=== PATIENT | male | born 1970 | race African-American/Black ===

== ENCOUNTER 2020-05-08 05:46 | Inpatient (IN) ==
[2020-05-08] MEDS ORDERED: DIAZEPAM 5 MG TABLET PO ONE (06:15)
[2020-05-08] MEDS ORDERED: POTASSIUM CHLORIDE RIDER 10 MEQ in PREMIX 1 EACH IV PRN (06:15)
[2020-05-08] MEDS ORDERED: diphenhydrAMINE CAP 50 MG CAPSULE PO ONE (06:15)
[2020-05-08] MEDS ORDERED: ASPIRIN 325 MG TABLET PO ONE (06:15)
[2020-05-08] MEDS ORDERED: MAGNESIUM SULF RIDER 2 GM in PREMIX 1 EACH IV PRN (06:15)
[2020-05-08] MEDS ORDERED: HEPARIN/NACL 0.9% 2 UNITS/ML 1,000 ML IV ONE (06:51)
[2020-05-08] MEDS ORDERED: LIDOCAINE 1% 20 ML VIAL ONE (06:51)
[2020-05-08] MEDS ORDERED: diphenhydrAMINE CAP 50 MG CAPSULE ONE (07:04)
[2020-05-08] MEDS ORDERED: DIAZEPAM 5 MG TABLET ONE (07:04)
[2020-05-08] MEDS ORDERED: ASPIRIN 325 MG TABLET ONE (07:04)
[2020-05-08] MEDS: SODIUM CHLORIDE 0.9% 1,000 ML IV SCH ×2 (07:07→16:18)
[2020-05-08] MEDS ORDERED: HYDROmorphone 2 MG/1 ML VIAL ONE (07:22)
[2020-05-08] MEDS ORDERED: MIDAZOLAM 2 MG/2 ML VIAL ONE (07:22)
[2020-05-08] MEDS ORDERED: diphenhydrAMINE 50 MG/1 ML VIAL ONE (07:31)
[2020-05-08] MEDS ORDERED: LABETALOL 20 MG/4 ML SYRINGE IV ONE (07:44)
[2020-05-08] MEDS ORDERED: ZALEPLON 5 MG CAPSULE PO PRN (08:17)
[2020-05-08] MEDS ORDERED: ONDANSETRON 4 MG/2 ML VIAL IV PRN (08:17)
[2020-05-08] MEDS ORDERED: ALBUTEROL 2.5 MG/3 ML NEB RESP TX PRN (08:18)
[2020-05-08] MEDS: FUROSEMIDE 40 MG/4 ML VIAL IV SCH ×2 (09:28→16:09)
[2020-05-08] MEDS: carvediloL 12.5 MG TABLET PO SCH ×2 (09:28→20:34)
[2020-05-08] MEDS: amLODIPine 10 MG TABLET PO SCH (09:28)
[2020-05-08] MEDS ORDERED: diphenhydrAMINE CAP 25 MG CAPSULE PO PRN (12:29)
[2020-05-08] MEDS ORDERED: MAGNESIUM HYDROXIDE SUSP 30 ML UDCUP PO PRN (12:30)
[2020-05-09] MEDS: SODIUM CHLORIDE 0.9% 1,000 ML IV SCH (03:19)
[2020-05-09 05:35] LABS: Basophils % 0.5 % (0.0-0.8); Eosinophils # 0.2 10*3/uL (0.0-0.87); Eosinophils % 3.5 % (0.00-10.9); Hematocrit 42.1 VOL% (42.0-52.0); Hemoglobin 13.9 GM/DL (14.0-18.0); Immature Granulocytes % 0.3 %; Immature Granulocytes Absolute 0.02 #; Lymphocytes # 1.7 10*3/uL (1.4-4.0); Lymphocytes % 27.8 % (21.2-54.2); Mean Corpuscular Volume 89.6 FL (87-102); Mean Platelet Volume 10.6 FL (9.6-12.0); Monocytes % 9.1 % (1.7-12.7); Neutrophils % 58.8 % (38.7-73.9); Platelet Count 238 T/CUMM (130-400); Red Cell Distribution Width 14.5 % (9.3-17.3); White Blood Count 6.3 T/CUMM (4-12)
[2020-05-09 06:01] LABS: Calcium 8.7 MG/DL (8.5-10.1); Osmolality,Calculated 273.8 MOS/KG (273-304); Potassium 3.9 MMOL/L (3.5-5.1)
[2020-05-09] MEDS: carvediloL 12.5 MG TABLET PO SCH ×2 (08:51→21:02)
[2020-05-09] MEDS: amLODIPine 10 MG TABLET PO SCH (08:51)
[2020-05-09] MEDS: FUROSEMIDE 40 MG/4 ML VIAL IV SCH ×2 (08:51→15:57)
[2020-05-09] MEDS ORDERED: ENOXAPARIN 40 MG/0.4 ML SYRINGE SUBCUT SCH (10:30)
[2020-05-09] MEDS ORDERED: POTASSIUM CHLORIDE 20 MEQ TABLET PO ONE (10:41)
[2020-05-09] MEDS: ALPRAZolam 0.25 MG TABLET PO PRN (11:10)
[2020-05-09] MEDS: ASCORBIC ACID 500 MG TABLET PO SCH ×2 (11:10→21:02)
[2020-05-09] MEDS ORDERED: DEXTROSE 50% 25 GM/50 ML VIAL IV PRN (12:37)
[2020-05-09] MEDS ORDERED: GLUCAGON 1 MG VIAL IM PRN (12:37)
[2020-05-10 04:38] LABS: ABG HCO3 27.9 MMOL/L (20-26); ABG Oxygen Saturation 94.9 % (95-100); ABG PCO2 42.5 MM HG (35-48); ABG PH 7.437 (7.35-7.45); ABG PO2 76.3 MM HG (80-95); ABG TCO2 24.6 MMOL/L (23-27); Allen Test Positive; Pt O2 Delivery Device Room Air
[2020-05-10 05:47] LABS: Basophils % 0.4 % (0.0-0.8); Eosinophils # 0.2 10*3/uL (0.0-0.87); Eosinophils % 4.4 % (0.00-10.9); Hematocrit 42.5 VOL% (42.0-52.0); Hemoglobin 14.3 GM/DL (14.0-18.0); Immature Granulocytes % 0.2 %; Immature Granulocytes Absolute 0.01 #; Lymphocytes # 1.8 10*3/uL (1.4-4.0); Lymphocytes % 35.2 % (21.2-54.2); Mean Corpuscular HGB Conc 33.6 GM/DL (32-36); Mean Corpuscular Volume 89.1 FL (87-102); Mean Platelet Volume 10.5 FL (9.6-12.0); Monocytes % 9.4 % (1.7-12.7); Neutrophils % 50.4 % (38.7-73.9); Platelet Count 240 T/CUMM (130-400); Red Blood Count 4.77 MC/CUMM (3.8-5.5); Red Cell Distribution Width 14.5 % (9.3-17.3); White Blood Count 5.2 T/CUMM (4-12)
[2020-05-10 06:07] LABS: Calcium 8.8 MG/DL (8.5-10.1); Osmolality,Calculated 275.7 MOS/KG (273-304); Potassium 3.7 MMOL/L (3.5-5.1)
[2020-05-10 06:09] LABS: Albumin 3.3 G/DL (3.4-5.0); Bilirubin,Total 0.7 MG/DL (0.2-1.0); Calcium 8.7 MG/DL (8.5-10.1); Osmolality,Calculated 275.7 MOS/KG (273-304); Potassium 3.9 MMOL/L (3.5-5.1); Total Protein 7.6 G/DL (6.4-8.9)
[2020-05-10] MEDS: carvediloL 12.5 MG TABLET PO SCH ×2 (08:49→21:33)
[2020-05-10] MEDS: amLODIPine 10 MG TABLET PO SCH (08:49)
[2020-05-10] MEDS: FUROSEMIDE 40 MG/4 ML VIAL IV SCH ×2 (08:49→15:45)
[2020-05-10] MEDS: ASCORBIC ACID 500 MG TABLET PO SCH ×2 (08:49→21:33)
[2020-05-10] MEDS: CHLORHEXIDINE 0.12% ORAL RINSE 60 ML BOTTLE SWISH/SPIT SCH ×2 (12:05→21:35)
[2020-05-10] MEDS: CHLORHEXIDINE 4% SOLN 118 ML BOTTLE TOP SCH ×3 (12:38→22:08)
[2020-05-10] MEDS: SODIUM CHLORIDE 0.9% 1,000 ML IV SCH (14:12)
[2020-05-10] MEDS ORDERED: PHENYLEPHRINE DRIP 20 MG/250 ML PREMIX IV ONE (14:23)
[2020-05-10] MEDS ORDERED: NITROGLYCERIN DRIP 50 MG/250 ML BOTTLE IV ONE (14:23)
[2020-05-11] MEDS ORDERED: VANCOMYCIN 1,000 MG VIAL ONE (04:20)
[2020-05-11] MEDS: CHLORHEXIDINE 4% SOLN 118 ML BOTTLE TOP SCH (04:20)
[2020-05-11] MEDS ORDERED: CEFUROXIME INJ 1,500 MG in SYRINGE 1 EACH IV ONE (05:00)
[2020-05-11] MEDS ORDERED: CALCIUM CHLORIDE 1,000 MG/10 ML VIAL IV ONE ×3 (05:55→11:40)
[2020-05-11] MEDS ORDERED: LIDOCAINE 2% 5 ML VIAL ONE ×4 (05:55→13:06)
[2020-05-11] MEDS ORDERED: VECURONIUM 10 MG VIAL IV ONE ×3 (05:55→11:40)
[2020-05-11] MEDS ORDERED: ETOMIDATE 40 MG/20 ML VIAL IV ONE (05:55)
[2020-05-11] MEDS ORDERED: AMINOCAPROIC ACID 5,000 MG/20 ML VIAL ONE (05:55)
[2020-05-11] MEDS ORDERED: MIDAZOLAM 10 MG/2 ML VIAL ONE ×6 (05:55→11:42)
[2020-05-11] MEDS ORDERED: diphenhydrAMINE 50 MG/1 ML VIAL ONE (05:55)
[2020-05-11] MEDS: carvediloL 12.5 MG TABLET PO SCH ×2 (06:00→10:04)
[2020-05-11] MEDS: ALPRAZolam 0.25 MG TABLET PO PRN (06:00)
[2020-05-11] MEDS ORDERED: SUFentanil 250 MCG/5 ML AMP ONE ×3 (06:16→11:52)
[2020-05-11] MEDS ORDERED: FAMOTIDINE 20 MG/2 ML VIAL IV ONE (06:28)
[2020-05-11 07:46] LABS: ABG Base Excess 2.4 MMOL/L (-2.5-2.5); ABG HCO3 26.6 MMOL/L (20-26); ABG Oxygen Saturation 99.9 % (95-100); ABG PCO2 46.3 MM HG (35-48); ABG PH 7.391 (7.35-7.45); ABG TCO2 24.3 MMOL/L (23-27); Glucose Heart Surgery 110 MG/DL (74-106); Hematocrit Heart Surgery 42.1 PERCENT (42-52); Hemoglobin Heart Surgery 13.7 G/DL (14.0-18.0); Ionized Calcium Arterial 1.15 MMOL/L (1.21-1.46); PCO2 Patient Temp Arterial 46.3 MMHG; PH Patient Temp Arterial 7.391; Patient Temperature 37 CELCIUS; Potassium Heart/CVR 3.9 MMOL/L (3.5-5.1); Sodium Heart/CVR 138 MMOL/L (135-145)
[2020-05-11 08:41] LABS: Hematocrit Heart Surgery 32.5 PERCENT (42-52); Hemoglobin Heart Surgery 10.5 G/DL (14.0-18.0); PCO2 Patient Temp Venous 41.6 MM HG; PH Patient Temp Venous 7.424; PO2 Patient Temp Venous 37.7 MM HG; Potassium Heart/CVR 4.3 MMOL/L (3.5-5.1); VBG Base Excess 2.7 MEQ/L (0-4); VBG HCO3 26.4 MEQ/L (24-28); VBG Oxygen Saturation 76.3 %; VBG PCO2 48.1 MMHG (41-51); VBG PH 7.38; VBG PO2 46.4 MMHG (17-40); VBG Total CO2 25.9 MMOL/L
[2020-05-11] MEDS ORDERED: SEVOFLURANE 1 UNIT/15 MINUTE INH ONE (08:53)
[2020-05-11] MEDS ORDERED: MINERAL OIL/PETROLATUM OPH OINT 3.5 GM TUBE ONE (08:53)
[2020-05-11] MEDS ORDERED: SODIUM CHLORIDE 0.9% 1,000 ML IV ONE ×2 (08:53→11:38)
[2020-05-11] MEDS ORDERED: HEPARIN/NACL 0.9% 2 UNITS/ML 500 ML IV ONE (08:53)
[2020-05-11] MEDS ORDERED: LACTATED RINGERS 1,000 ML IV ONE ×2 (08:53→11:38)
[2020-05-11] MEDS ORDERED: MULTIVITAMIN (CENTRUM) TABLET PO SCH (09:00)
[2020-05-11 09:17] LABS: Hematocrit Heart Surgery 33.6 PERCENT (42-52); Hemoglobin Heart Surgery 10.9 G/DL (14.0-18.0); PCO2 Patient Temp Venous 36.4 MM HG; PH Patient Temp Venous 7.466; PO2 Patient Temp Venous 38.9 MM HG; Potassium Heart/CVR 4.6 MMOL/L (3.5-5.1); VBG Base Excess 2.7 MEQ/L (0-4); VBG HCO3 26.4 MEQ/L (24-28); VBG Oxygen Saturation 77.8 %; VBG PCO2 40.1 MMHG (41-51); VBG PH 7.436; VBG PO2 44.7 MMHG (17-40); VBG Total CO2 24.3 MMOL/L
[2020-05-11] MEDS ORDERED: ALBUMIN 5% 12.5 GM/250 ML VIAL IV ONE ×2 (09:19)
[2020-05-11] MEDS ORDERED: PHENYLEPHRINE DRIP 40 MG/250 ML PREMIX IV ONE (09:19)
[2020-05-11 09:37] LABS: Bilirubin,Urine Negative (Negative); Blood, Urine Negative (Negative); Glucose,Urine (UA) Negative (Negative); Ketones,Urine Negative (Negative); Mucus,Urine Occasional /LPF (Occasional); Nitrite,Urine Negative (Negative); Protein,Urine Negative; RBC,Urine <1 /HPF (0-4); Squamous Epithelial Cell,Urine Occasional /HPF (0-10); Urine Appearance CLEAR (Clear); Urine Color Yellow (Yellow); Urine Specific Gravity 1.021 (1.001-1.035); Urine Urobilinogen < 2.0 EU/DL (0.2-1.0); WBC,Urine <1 /HPF (0-6)
[2020-05-11] MEDS ORDERED: DOBUTamine 500 MG/250 ML PREMIX IV ONE ×2 (09:51→13:15)
[2020-05-11] MEDS ORDERED: AMIODARONE 150 MG/3 ML VIAL ONE (09:58)
[2020-05-11] MEDS: FUROSEMIDE 40 MG/4 ML VIAL IV SCH (10:03)
[2020-05-11 10:04] LABS: Hematocrit Heart Surgery 34.4 PERCENT (42-52); Hemoglobin Heart Surgery 11.2 G/DL (14.0-18.0); PCO2 Patient Temp Venous 38.2 MM HG; PH Patient Temp Venous 7.447; PO2 Patient Temp Venous 37.8 MM HG; Potassium Heart/CVR 4.8 MMOL/L (3.5-5.1); VBG Base Excess 2.4 MEQ/L (0-4); VBG Oxygen Saturation 67.9 %; VBG PCO2 38.2 MMHG (41-51); VBG PH 7.447; VBG PO2 37.8 MMHG (17-40); VBG Total CO2 23.7 MMOL/L
[2020-05-11] MEDS: amLODIPine 10 MG TABLET PO SCH (10:04)
[2020-05-11] MEDS: CHLORHEXIDINE 0.12% ORAL RINSE 60 ML BOTTLE SWISH/SPIT SCH ×2 (10:04→21:04)
[2020-05-11] MEDS: ASCORBIC ACID 500 MG TABLET PO SCH (10:04)
[2020-05-11] MEDS ORDERED: SODIUM CHLORIDE 0.9% 250 ML IV ONE ×2 (10:29→10:45)
[2020-05-11] MEDS ORDERED: PHENYLEPHRINE 10 MG/1 ML VIAL IV ONE ×2 (10:29→10:31)
[2020-05-11] MEDS ORDERED: MANNITOL 100 GM/500 ML BAG IV ONE (10:30)
[2020-05-11] MEDS ORDERED: DEXTROSE 5% KCL 20 MEQ 20 MEQ/1,000 ML BAG IV ONE ×2 (10:30→13:06)
[2020-05-11] MEDS ORDERED: PROTAMINE SULFATE 250 MG/25 ML VIAL IV ONE ×2 (10:30→13:07)
[2020-05-11] MEDS ORDERED: MAGNESIUM SULFATE 5 GM/10 ML VIAL IV ONE ×2 (10:30→13:06)
[2020-05-11] MEDS ORDERED: ALBUMIN 25% 25 GM/100 ML VIAL IV ONE (10:30)
[2020-05-11] MEDS ORDERED: methylPREDNISolone SOD SUC 1,000 MG/8 ML VIAL ONE (10:30)
[2020-05-11] MEDS ORDERED: PROTAMINE SULFATE 50 MG/5 ML VIAL IV ONE ×3 (10:31→13:50)
[2020-05-11] MEDS ORDERED: SODIUM BICARBONATE 50 MEQ/50 ML VIAL IV ONE ×2 (10:31→13:07)
[2020-05-11] MEDS ORDERED: HEPARIN 10,000 UNIT/10 ML VIAL ONE ×2 (10:31→13:07)
[2020-05-11] MEDS ORDERED: FUROSEMIDE 20 MG/2 ML VIAL ONE (10:31)
[2020-05-11] MEDS ORDERED: EPINEPHrine 1 MG/ML VIAL ONE (10:52)
[2020-05-11 11:23] LABS: ABG Base Excess 0.1 MMOL/L (-2.5-2.5); ABG HCO3 24.5 MMOL/L (20-26); ABG Oxygen Saturation 99.4 % (95-100); ABG PH 7.365 (7.35-7.45); ABG TCO2 22.9 MMOL/L (23-27); Glucose Heart Surgery 135 MG/DL (74-106); Hematocrit Heart Surgery 36.3 PERCENT (42-52); Hemoglobin Heart Surgery 11.8 G/DL (14.0-18.0); Ionized Calcium Arterial 1.43 MMOL/L (1.21-1.46); PH Patient Temp Arterial 7.365; Patient Temperature 37 CELCIUS; Potassium Heart/CVR 4.2 MMOL/L (3.5-5.1); Sodium Heart/CVR 138 MMOL/L (135-145)
[2020-05-11] MEDS ORDERED: PAPAVERINE 60 MG/2 ML VIAL ONE (11:24)
[2020-05-11] MEDS ORDERED: SODIUM CHLORIDE 0.9% 300 ML IV ONE (11:52)
[2020-05-11 11:54] LABS: Hematocrit Heart Surgery 34.9 PERCENT (42-52); Hemoglobin Heart Surgery 11.3 G/DL (14.0-18.0); PCO2 Patient Temp Venous 45.9 MM HG; PH Patient Temp Venous 7.367; PO2 Patient Temp Venous 46.9 MM HG; Potassium Heart/CVR 4.5 MMOL/L (3.5-5.1); VBG Base Excess 0.7 MEQ/L (0-4); VBG HCO3 24.6 MEQ/L (24-28); VBG Oxygen Saturation 75.7 %; VBG PCO2 45.9 MMHG (41-51); VBG PH 7.367; VBG PO2 46.9 MMHG (17-40); VBG Total CO2 23.8 MMOL/L
[2020-05-11] MEDS ORDERED: VANCOMYCIN 500 MG VIAL ONE (12:04)
[2020-05-11] MEDS ORDERED: SUFentanil 50 MCG/ML AMP ONE (12:18)
[2020-05-11 12:23] LABS: Hematocrit Heart Surgery 32.5 PERCENT (42-52); Hemoglobin Heart Surgery 10.5 G/DL (14.0-18.0); PCO2 Patient Temp Venous 41.7 MM HG; PH Patient Temp Venous 7.395; PO2 Patient Temp Venous 48.9 MM HG; Potassium Heart/CVR 4.6 MMOL/L (3.5-5.1); VBG Base Excess 0.6 MEQ/L (0-4); VBG HCO3 24.7 MEQ/L (24-28); VBG Oxygen Saturation 80.4 %; VBG PCO2 41.7 MMHG (41-51); VBG PH 7.395; VBG PO2 48.9 MMHG (17-40); VBG Total CO2 23.2 MMOL/L
[2020-05-11] MEDS ORDERED: EPINEPHrine 1 MG/10 ML SYRINGE ONE (12:53)
[2020-05-11] MEDS ORDERED: CALCIUM CHLORIDE 1,000 MG/10 ML SYRINGE IV ONE (12:53)
[2020-05-11] MEDS ORDERED: SODIUM BICARBONATE 50 MEQ/50 ML SYRINGE IV ONE (12:54)
[2020-05-11 13:08] LABS: ABG Base Excess -1.7 MMOL/L (-2.5-2.5); ABG HCO3 22.9 MMOL/L (20-26); ABG Oxygen Saturation 95.3 % (95-100); ABG PCO2 42.1 MM HG (35-48); ABG PH 7.359 (7.35-7.45); ABG PO2 85.5 MM HG (80-95); ABG TCO2 21.4 MMOL/L (23-27); Glucose Heart Surgery 185 MG/DL (74-106); Hematocrit Heart Surgery 33.9 PERCENT (42-52); Ionized Calcium Arterial 1.46 MMOL/L (1.21-1.46); PCO2 Patient Temp Arterial 42.1 MMHG; PH Patient Temp Arterial 7.359; PO2 Patient Temp Arterial 85.5 MM HG; Patient Temperature 37 CELCIUS; Potassium Heart/CVR 4.4 MMOL/L (3.5-5.1); Sodium Heart/CVR 136 MMOL/L (135-145)
[2020-05-11] MEDS ORDERED: CHLORHEXIDINE 4% SOLN 118 ML BOTTLE TOP PRN (13:19)
[2020-05-11] MEDS ORDERED: PHENYLEPHRINE DRIP 40 MG/250 ML PREMIX IV PRN (13:19)
[2020-05-11] MEDS ORDERED: INSULIN REGULAR 100 UNIT/ML IV PRN (13:19)
[2020-05-11] MEDS ORDERED: MAGNESIUM SULF RIDER 4 GM in PREMIX 1 EACH IV PRN (13:19)
[2020-05-11] MEDS ORDERED: VECURONIUM 10 MG VIAL IV PRN ×2 (13:19)
[2020-05-11] MEDS ORDERED: INSULIN REGULAR DRIP 100 ML IV SCH (13:19)
[2020-05-11] MEDS ORDERED: CALCIUM CHLORIDE 1,000 MG/10 ML SYRINGE IV PRN (13:19)
[2020-05-11] MEDS ORDERED: ACETAMINOPHEN 650 MG SUPP RECTAL PRN (13:19)
[2020-05-11] MEDS ORDERED: POTASSIUM CHLORIDE RIDER 10 MEQ in PREMIX 1 EACH IV PRN (13:19)
[2020-05-11] MEDS ORDERED: DEXTROSE 50% 25 GM/50 ML VIAL IV PRN ×2 (13:19)
[2020-05-11] MEDS ORDERED: INSULIN REGULAR 100 UNIT/ML IV ONE (13:19)
[2020-05-11] MEDS ORDERED: MORPHINE 4 MG/1 ML VIAL IV PRN (13:19)
[2020-05-11] MEDS ORDERED: MAGNESIUM SULF RIDER 2 GM in PREMIX 1 EACH IV PRN (13:19)
[2020-05-11] MEDS ORDERED: LACTATED RINGERS 250 ML IV PRN (13:19)
[2020-05-11] MEDS ORDERED: MIDAZOLAM 10 MG/2 ML VIAL IV PRN (13:19)
[2020-05-11] MEDS ORDERED: NITROPRUSSIDE 100 MG in DEXTROSE 5% 250 ML IV PRN (13:19)
[2020-05-11] MEDS ORDERED: SODIUM CHLORIDE 0.45% 1,000 ML IV SCH ×2 (13:19)
[2020-05-11] MEDS ORDERED: MIDAZOLAM 2 MG/2 ML VIAL IV PRN (13:19)
[2020-05-11] MEDS ORDERED: ONDANSETRON 4 MG/2 ML VIAL IV PRN (13:19)
[2020-05-11] MEDS ORDERED: DOBUTamine 500 MG/250 ML PREMIX IV PRN (13:20)
[2020-05-11 14:05] LABS: ABG Base Excess -1.3 MMOL/L (-2.5-2.5); ABG HCO3 23.4 MMOL/L (20-26); ABG Oxygen Saturation 98.8 % (95-100); ABG PCO2 50.2 MM HG (35-48); ABG PH 7.314 (7.35-7.45); Glucose Heart Surgery 146 MG/DL (74-106); Hematocrit 33.6 VOL% (42.0-52.0); Hematocrit Heart Surgery 34.7 PERCENT (42-52); Hemoglobin 10.9 GM/DL (14.0-18.0); Hemoglobin Heart Surgery 11.2 G/DL (14.0-18.0); Potassium Heart/CVR 4.5 MMOL/L (3.5-5.1); Red Blood Count 3.65 MC/CUMM (3.8-5.5)
[2020-05-11 14:06] LABS: Basophils % 0.2 % (0.0-0.8); Eosinophils # 0.1 10*3/uL (0.0-0.87); Eosinophils % 0.4 % (0.00-10.9); Immature Granulocytes % 1.3 %; Immature Granulocytes Absolute 0.16 #; Lymphocytes # 1.3 10*3/uL (1.4-4.0); Lymphocytes % 10.5 % (21.2-54.2); Mean Corpuscular HGB Conc 32.4 GM/DL (32-36); Mean Corpuscular Volume 92.1 FL (87-102); Mean Platelet Volume 10.1 FL (9.6-12.0); Monocytes % 3.7 % (1.7-12.7); Neutrophils % 83.9 % (38.7-73.9); Platelet Count 162 T/CUMM (130-400); Red Cell Distribution Width 14.4 % (9.3-17.3)
[2020-05-11 14:17] LABS: INR 1.2; PT Patient Result 12.4 SECS (9.8-11.9); Partial Thromboplastin Time 26.2 SECS (23.9-33.8)
[2020-05-11 14:29] LABS: Albumin 2.9 G/DL (3.4-5.0); Bilirubin,Total 1.3 MG/DL (0.2-1.0); CKMB % 7.4 %; Calcium 9.6 MG/DL (8.5-10.1); Osmolality,Calculated 280.5 MOS/KG (273-304); Potassium 4.5 MMOL/L (3.5-5.1); Total Protein 6.2 G/DL (5.0-7.5)
[2020-05-11 14:32] LABS: Troponin I 8.09 NG/ML (0.00-0.045)
[2020-05-11] MEDS ORDERED: NITROPRUSSIDE 50 MG/2 ML VIAL ONE (14:48)
[2020-05-11] MEDS: LACTATED RINGERS 1,000 ML IV PRN ×2 (15:00→18:58)
[2020-05-11] MEDS: ALBUMIN 5% 12.5 GM in PREMIX 1 EACH IV PRN ×2 (15:12→18:34)
[2020-05-11 15:46] LABS: ABG Base Excess -0.8 MMOL/L (-2.5-2.5); ABG HCO3 23.7 MMOL/L (20-26); ABG Oxygen Saturation 91.8 % (95-100); ABG PCO2 48.5 MM HG (35-48); ABG PO2 73.9 MM HG (80-95); ABG TCO2 23.2 MMOL/L (23-27); Glucose Heart Surgery 164 MG/DL (74-106); Hematocrit Heart Surgery 33.2 PERCENT (42-52); Hemoglobin Heart Surgery 10.8 G/DL (14.0-18.0); Potassium Heart/CVR 4.7 MMOL/L (3.5-5.1)
[2020-05-11 16:30] LABS: ABG Base Excess -0.8 MMOL/L (-2.5-2.5); ABG HCO3 23.7 MMOL/L (20-26); ABG Oxygen Saturation 95.3 % (95-100); ABG PCO2 43.2 MM HG (35-48); ABG PH 7.364 (7.35-7.45); ABG PO2 84.2 MM HG (80-95); ABG TCO2 22.5 MMOL/L (23-27); Glucose Heart Surgery 178 MG/DL (74-106); Hematocrit Heart Surgery 31.6 PERCENT (42-52); Hemoglobin Heart Surgery 10.2 G/DL (14.0-18.0); Potassium Heart/CVR 4.8 MMOL/L (3.5-5.1)
[2020-05-11 17:43] LABS: ABG Base Excess -0.3 MMOL/L (-2.5-2.5); ABG HCO3 24.2 MMOL/L (20-26); ABG PCO2 41.1 MM HG (35-48); ABG PH 7.387 (7.35-7.45); ABG TCO2 22.4 MMOL/L (23-27); Glucose Heart Surgery 195 MG/DL (74-106); Hematocrit Heart Surgery 32.3 PERCENT (42-52); Hemoglobin Heart Surgery 10.5 G/DL (14.0-18.0); Potassium Heart/CVR 4.8 MMOL/L (3.5-5.1)
[2020-05-11] MEDS: SODIUM CHLORIDE 0.9% 1,000 ML IV SCH (17:57)
[2020-05-11] MEDS: MORPHINE 10 MG/1 ML VIAL IV PRN ×2 (18:55→23:15)
[2020-05-11] MEDS ORDERED: HALOPERIDOL 5 MG/ML AMP IV ONE (19:35)
[2020-05-11] MEDS: CEFUROXIME INJ 1,500 MG in SYRINGE 1 EACH IV SCH (19:48)
[2020-05-11 20:58] LABS: ABG Base Excess -0.4 MMOL/L (-2.5-2.5); ABG Oxygen Saturation 96.5 % (95-100); ABG PCO2 37.9 MM HG (35-48); ABG PH 7.409 (7.35-7.45); ABG PO2 86.6 MM HG (80-95); ABG TCO2 21.8 MMOL/L (23-27); Glucose Heart Surgery 194 MG/DL (74-106); Hematocrit Heart Surgery 30.5 PERCENT (42-52); Hemoglobin Heart Surgery 9.8 G/DL (14.0-18.0); Potassium Heart/CVR 4.3 MMOL/L (3.5-5.1)
[2020-05-11] MEDS: POTASSIUM CHLORIDE RIDER 20 MEQ in PREMIX 1 EACH IV PRN (21:04)
[2020-05-11 21:23] LABS: Troponin I 12.6 NG/ML (0.00-0.045)
[2020-05-11 23:50] LABS: ABG Base Excess -0.8 MMOL/L (-2.5-2.5); ABG HCO3 23.7 MMOL/L (20-26); ABG Oxygen Saturation 95.8 % (95-100); ABG PCO2 37.8 MM HG (35-48); ABG PH 7.405 (7.35-7.45); ABG PO2 84.6 MM HG (80-95); ABG TCO2 21.6 MMOL/L (23-27); Glucose Heart Surgery 184 MG/DL (74-106); Hematocrit Heart Surgery 30.5 PERCENT (42-52); Hemoglobin Heart Surgery 9.9 G/DL (14.0-18.0); Potassium Heart/CVR 4.5 MMOL/L (3.5-5.1)
[2020-05-12] MEDS: POTASSIUM CHLORIDE RIDER 20 MEQ in PREMIX 1 EACH IV PRN ×2 (00:24→04:20)
[2020-05-12 01:37] LABS: ABG HCO3 24.1 MMOL/L (20-26); ABG Oxygen Saturation 95.8 % (95-100); ABG PH 7.431 (7.35-7.45); ABG PO2 92.2 MM HG (80-95); ABG TCO2 25.2 MMOL/L (23-27); Glucose Heart Surgery 159 MG/DL (74-106); Hemoglobin Heart Surgery 10.2 G/DL (14.0-18.0); Potassium Heart/CVR 4.7 MMOL/L (3.5-5.1)
[2020-05-12 02:21] LABS: ABG HCO3 24.4 MMOL/L (20-26); ABG Oxygen Saturation 95.4 % (95-100); ABG PCO2 39.4 MM HG (35-48); ABG PH 7.403 (7.35-7.45); ABG PO2 80.2 MM HG (80-95); ABG TCO2 22.5 MMOL/L (23-27); Glucose Heart Surgery 174 MG/DL (74-106); Hematocrit Heart Surgery 29.7 PERCENT (42-52); Hemoglobin Heart Surgery 9.6 G/DL (14.0-18.0); Potassium Heart/CVR 4.7 MMOL/L (3.5-5.1)
[2020-05-12] MEDS: MORPHINE 10 MG/1 ML VIAL IV PRN ×2 (03:22→09:30)
[2020-05-12] MEDS: LACTATED RINGERS 1,000 ML IV PRN (04:14)
[2020-05-12 04:37] LABS: ABG Base Excess 0.4 MMOL/L (-2.5-2.5); ABG HCO3 24.7 MMOL/L (20-26); ABG Oxygen Saturation 90.7 % (95-100); ABG PCO2 38.8 MM HG (35-48); ABG PH 7.415 (7.35-7.45); ABG PO2 63.1 MM HG (80-95); ABG TCO2 22.8 MMOL/L (23-27); Glucose Heart Surgery 171 MG/DL (74-106); Hematocrit Heart Surgery 29.6 PERCENT (42-52); Hemoglobin Heart Surgery 9.5 G/DL (14.0-18.0); Potassium Heart/CVR 4.4 MMOL/L (3.5-5.1)
[2020-05-12 04:42] LABS: Hematocrit 29.1 VOL% (42.0-52.0); Hemoglobin 9.3 GM/DL (14.0-18.0); Immature Granulocytes % 0.5 %; Immature Granulocytes Absolute 0.04 #; Lymphocytes # 0.6 10*3/uL (1.4-4.0); Lymphocytes % 6.9 % (21.2-54.2); Mean Corpuscular Volume 92.4 FL (87-102); Mean Platelet Volume 10.5 FL (9.6-12.0); Monocytes % 4.8 % (1.7-12.7); Neutrophils % 87.8 % (38.7-73.9); Red Blood Count 3.15 MC/CUMM (3.8-5.5); Red Cell Distribution Width 14.6 % (9.3-17.3); White Blood Count 8.5 T/CUMM (4-12)
[2020-05-12 04:56] LABS: Platelet Count 125 T/CUMM (130-400)
[2020-05-12 05:02] LABS: Bilirubin,Direct 0.32 MG/DL (0.0-0.20); Calcium 8.6 MG/DL (8.5-10.1); Osmolality,Calculated 284.4 MOS/KG (273-304); Potassium 4.4 MMOL/L (3.5-5.1); Total Protein 6.2 G/DL (5.0-7.5)
[2020-05-12 05:03] LABS: Hypochromasia 1+; Microcytosis 1+
[2020-05-12 05:37] LABS: ABG Base Excess 1.7 MMOL/L (-2.5-2.5); ABG HCO3 26.2 MMOL/L (20-26); ABG Oxygen Saturation 92.9 % (95-100); ABG PCO2 41.1 MM HG (35-48); ABG PH 7.423 (7.35-7.45); ABG PO2 71.7 MM HG (80-95); ABG TCO2 27.5 MMOL/L (23-27); Glucose Heart Surgery 160 MG/DL (74-106); Potassium Heart/CVR 4.5 MMOL/L (3.5-5.1)
[2020-05-12] MEDS: carvediloL 6.25 MG TABLET PO SCH ×2 (06:22→20:39)
[2020-05-12] MEDS: amLODIPine 5 MG TABLET PO SCH ×2 (06:22→11:04)
[2020-05-12 07:03] LABS: CKMB % 2.4 %
[2020-05-12 07:11] LABS: Troponin I 13.5 NG/ML (0.00-0.045)
[2020-05-12] MEDS: INSULIN REGULAR 100 UNIT/ML SUBCUT SCH ×4 (09:22→21:00)
[2020-05-12] MEDS: CEFUROXIME INJ 1,500 MG in SYRINGE 1 EACH IV SCH ×2 (09:30→20:38)
[2020-05-12] MEDS: CHLORHEXIDINE 0.12% ORAL RINSE 60 ML BOTTLE SWISH/SPIT SCH ×2 (09:35→20:39)
[2020-05-12] MEDS: cloNIDine 0.1 MG TABLET PO SCH ×3 (09:36→20:39)
[2020-05-12] MEDS: ASCORBIC ACID 500 MG TABLET PO SCH ×2 (11:51→20:39)
[2020-05-12] MEDS: SODIUM CHLOR 0.45% KCL 20 MEQ 20 MEQ/1,000 ML BAG IV SCH (11:52)
[2020-05-12] MEDS: ALPRAZolam 0.25 MG TABLET PO PRN (13:35)
[2020-05-12 14:19] LABS: CKMB % 1.3 %
[2020-05-12 14:20] LABS: Troponin I 9.44 NG/ML (0.00-0.045)
[2020-05-12] MEDS ORDERED: FUROSEMIDE 40 MG/4 ML VIAL IV ONE (14:27)
[2020-05-12] MEDS ORDERED: HYDROmorphone 2 MG/1 ML VIAL IV PRN (14:27)
[2020-05-12] MEDS: oxyCODONE/ACETAMINOPHEN 5-325 MG TABLET PO PRN ×2 (15:02→21:00)
[2020-05-12] MEDS ORDERED: ZALEPLON 5 MG CAPSULE PO PRN (19:38)
[2020-05-13] MEDS: oxyCODONE/ACETAMINOPHEN 5-325 MG TABLET PO PRN ×4 (01:14→20:06)
[2020-05-13] MEDS: ALPRAZolam 0.25 MG TABLET PO PRN (01:18)
[2020-05-13 05:11] LABS: Basophils % 0.1 % (0.0-0.8); Eosinophils % 0.1 % (0.00-10.9); Hematocrit 26.1 VOL% (42.0-52.0); Hemoglobin 8.5 GM/DL (14.0-18.0); Immature Granulocytes % 0.5 %; Immature Granulocytes Absolute 0.04 #; Lymphocytes # 0.9 10*3/uL (1.4-4.0); Lymphocytes % 9.9 % (21.2-54.2); Mean Corpuscular HGB Conc 32.6 GM/DL (32-36); Mean Corpuscular Volume 91.6 FL (87-102); Mean Platelet Volume 11.3 FL (9.6-12.0); Monocytes % 6.3 % (1.7-12.7); Neutrophils % 83.1 % (38.7-73.9); Red Blood Count 2.85 MC/CUMM (3.8-5.5); Red Cell Distribution Width 14.2 % (9.3-17.3); White Blood Count 8.6 T/CUMM (4-12)
[2020-05-13 05:12] LABS: Platelet Count 84 T/CUMM (130-400)
[2020-05-13 05:20] LABS: Albumin 3.1 G/DL (3.4-5.0); Bilirubin,Direct 0.34 MG/DL (0.0-0.20); Bilirubin,Total 1.1 MG/DL (0.2-1.0); Calcium 8.5 MG/DL (8.5-10.1); Osmolality,Calculated 273.1 MOS/KG (273-304); Potassium 4.2 MMOL/L (3.5-5.1); Total Protein 6.7 G/DL (5.0-7.5)
[2020-05-13 05:33] LABS: Hypochromasia 1+; Microcytosis 1+; Platelet Estimate Decreased
[2020-05-13] MEDS ORDERED: SODIUM CHLORIDE 0.9% 1,000 ML IV PRN (06:13)
[2020-05-13] MEDS ORDERED: NITROGLYCERIN DRIP 50 MG/250 ML BOTTLE IV PRN (07:05)
[2020-05-13] MEDS: LOSARTAN 50 MG TABLET PO SCH ×2 (07:10→08:06)
[2020-05-13] MEDS: INSULIN REGULAR 100 UNIT/ML SUBCUT SCH (07:21)
[2020-05-13] MEDS: ASCORBIC ACID 500 MG TABLET PO SCH ×2 (08:06→20:06)
[2020-05-13] MEDS: carvediloL 12.5 MG TABLET PO SCH ×2 (08:06→20:06)
[2020-05-13] MEDS: cloNIDine 0.1 MG TABLET PO SCH ×3 (08:06→20:07)
[2020-05-13] MEDS: CHLORHEXIDINE 0.12% ORAL RINSE 60 ML BOTTLE SWISH/SPIT SCH ×2 (08:07→20:08)
[2020-05-13] MEDS: amLODIPine 5 MG TABLET PO SCH (08:07)
[2020-05-13] MEDS ORDERED: DEXTROSE 50% 25 GM/50 ML VIAL IV PRN (10:20)
[2020-05-13] MEDS ORDERED: POTASSIUM CHLORIDE 20 MEQ TABLET PO PRN (10:20)
[2020-05-13] MEDS ORDERED: MAGNESIUM SULF RIDER 2 GM in PREMIX 1 EACH IV PRN (10:20)
[2020-05-13] MEDS ORDERED: GLUCAGON 1 MG VIAL IM PRN (10:20)
[2020-05-13] MEDS ORDERED: SODIUM CHLOR 0.45% KCL 20 MEQ 20 MEQ/1,000 ML BAG IV SCH (10:20)
[2020-05-13] MEDS ORDERED: MAGNESIUM SULF RIDER 4 GM in PREMIX 1 EACH IV PRN (10:20)
[2020-05-13] MEDS ORDERED: ALUMINUM/MAGNES/SIMETH MAX STR 30 ML UDCUP PO PRN (10:20)
[2020-05-13] MEDS ORDERED: MAGNESIUM HYDROXIDE SUSP 30 ML UDCUP PO PRN (10:20)
[2020-05-13] MEDS: SODIUM CHLOR 0.45% KCL 20 MEQ 20 MEQ/1,000 ML BAG IV SCH (10:20)
[2020-05-13] MEDS ORDERED: ONDANSETRON 4 MG/2 ML VIAL IV PRN (10:20)
[2020-05-13] MEDS ORDERED: ACETAMINOPHEN 325 MG TABLET PO PRN (10:20)
[2020-05-13] MEDS: ASPIRIN EC 81 MG TABLET PO SCH (10:32)
[2020-05-13] MEDS: ZALEPLON 5 MG CAPSULE PO PRN (20:07)
[2020-05-14] MEDS: oxyCODONE/ACETAMINOPHEN 5-325 MG TABLET PO PRN ×3 (01:01→19:43)
[2020-05-14 05:38] LABS: Basophils % 0.1 % (0.0-0.8); Eosinophils % 0.1 % (0.00-10.9); Hematocrit 25.3 VOL% (42.0-52.0); Hemoglobin 8.1 GM/DL (14.0-18.0); Immature Granulocytes % 0.5 %; Immature Granulocytes Absolute 0.04 #; Lymphocytes # 1.9 10*3/uL (1.4-4.0); Mean Corpuscular Volume 91.7 FL (87-102); Mean Platelet Volume 10.9 FL (9.6-12.0); Monocytes % 8.3 % (1.7-12.7); NRBC # 0.02 10*3/uL; Red Blood Count 2.76 MC/CUMM (3.8-5.5); Red Cell Distribution Width 14.9 % (9.3-17.3); White Blood Count 8.5 T/CUMM (4-12)
[2020-05-14 05:39] LABS: Platelet Count 86 T/CUMM (130-400)
[2020-05-14 05:55] LABS: Calcium 8.2 MG/DL (8.5-10.1); Hypochromasia 1+; Microcytosis 1+; Osmolality,Calculated 277.7 MOS/KG (273-304); Ovalocytes Slight; Platelet Estimate Decreased; Risk Ratio 3.18; VLDL CHOLESTEROL 20.4 MG/DL
[2020-05-14 05:57] LABS: Albumin 2.9 G/DL (3.4-5.0); Bilirubin,Direct 0.28 MG/DL (0.0-0.20); Bilirubin,Total 1.2 MG/DL (0.2-1.0); Calcium 8.1 MG/DL (8.5-10.1); Osmolality,Calculated 276.8 MOS/KG (273-304); Total Protein 6.3 G/DL (5.0-7.5)
[2020-05-14] MEDS ORDERED: FUROSEMIDE 40 MG/4 ML VIAL IV ONE ×2 (06:00→15:00)
[2020-05-14 06:08] LABS: Alanine Aminotransferase 34 U/L (16-61); Albumin 2.9 G/DL (3.4-5.0); Alkaline Phosphatase 52 U/L (45-117); Aspartate Amino Transferase 38 U/L (0-37); Bilirubin,Indirect 0.7 MG/DL (0.0-1.0); Total Protein 5.9 G/DL (5.0-7.5)
[2020-05-14] MEDS: POLYETHYLENE GLYCOL POWDER 17 GM PACK PO SCH (08:47)
[2020-05-14] MEDS: FUROSEMIDE 40 MG TABLET PO SCH (08:49)
[2020-05-14] MEDS: cloNIDine 0.1 MG TABLET PO SCH ×3 (08:51→21:18)
[2020-05-14] MEDS: ASPIRIN EC 81 MG TABLET PO SCH (08:51)
[2020-05-14] MEDS: DOCUSATE SODIUM 100 MG CAPSULE PO SCH (08:51)
[2020-05-14] MEDS: FERROUS SULFATE 325 MG TABLET PO SCH (08:52)
[2020-05-14] MEDS: LOSARTAN 50 MG TABLET PO SCH (08:52)
[2020-05-14] MEDS: carvediloL 12.5 MG TABLET PO SCH ×2 (08:52→21:18)
[2020-05-14] MEDS: CHLORHEXIDINE 0.12% ORAL RINSE 60 ML BOTTLE SWISH/SPIT SCH ×2 (08:53→21:19)
[2020-05-14] MEDS: amLODIPine 5 MG TABLET PO SCH (08:53)
[2020-05-14] MEDS: PANTOPRAZOLE 40 MG TABLET PO SCH (08:54)
[2020-05-14] MEDS: ASCORBIC ACID 500 MG TABLET PO SCH ×2 (08:54→21:19)
[2020-05-14] MEDS: ALPRAZolam 0.25 MG TABLET PO PRN (19:42)
[2020-05-15] MEDS: oxyCODONE/ACETAMINOPHEN 5-325 MG TABLET PO PRN ×2 (04:27→19:08)
[2020-05-15 05:56] LABS: Basophils % 0.1 % (0.0-0.8); Eosinophils # 0.2 10*3/uL (0.0-0.87); Eosinophils % 2.1 % (0.00-10.9); Hematocrit 27.1 VOL% (42.0-52.0); Hemoglobin 9.1 GM/DL (14.0-18.0); Immature Granulocytes % 0.7 %; Immature Granulocytes Absolute 0.05 #; Lymphocytes # 1.7 10*3/uL (1.4-4.0); Lymphocytes % 22.6 % (21.2-54.2); Mean Corpuscular HGB Conc 33.6 GM/DL (32-36); Mean Corpuscular Volume 89.1 FL (87-102); Mean Platelet Volume 11.1 FL (9.6-12.0); Monocytes % 7.9 % (1.7-12.7); NRBC # 0.05 10*3/uL; Neutrophils % 66.6 % (38.7-73.9); Platelet Count 103 T/CUMM (130-400); Red Blood Count 3.04 MC/CUMM (3.8-5.5); Red Cell Distribution Width 14.5 % (9.3-17.3); White Blood Count 7.6 T/CUMM (4-12)
[2020-05-15 06:18] LABS: Albumin 2.7 G/DL (3.4-5.0); Bilirubin,Direct 0.28 MG/DL (0.0-0.20); Bilirubin,Indirect 0.8 MG/DL (0.0-1.0); Bilirubin,Total 1.1 MG/DL (0.2-1.0); Calcium 8.4 MG/DL (8.5-10.1); Osmolality,Calculated 268.4 MOS/KG (273-304); Potassium 3.6 MMOL/L (3.5-5.1); Total Protein 6.7 G/DL (5.0-7.5)
[2020-05-15 06:21] LABS: Blood Urea Nitrogen 22 MG/DL (7-18); Carbon Dioxide 28 MMOL/L (21-32); Estimated Glom Filtration Rate 147 ML/MIN; Glucose 94 MG/DL (74-106); Osmolality,Calculated 272.1 MOS/KG (273-304); Potassium 3.6 MMOL/L (3.5-5.1); Sodium 135 MMOL/L (136-145)
[2020-05-15 06:30] LABS: Hypochromasia 1+; Microcytosis 1+
[2020-05-15 06:31] LABS: Platelet Estimate Decreased; Polychromasia Slight
[2020-05-15] MEDS: ASCORBIC ACID 500 MG TABLET PO SCH ×2 (09:00→20:43)
[2020-05-15] MEDS: ASPIRIN EC 81 MG TABLET PO SCH (09:00)
[2020-05-15] MEDS: PANTOPRAZOLE 40 MG TABLET PO SCH (09:00)
[2020-05-15] MEDS: FUROSEMIDE 40 MG TABLET PO SCH (09:01)
[2020-05-15] MEDS: FERROUS SULFATE 325 MG TABLET PO SCH (09:01)
[2020-05-15] MEDS: DOCUSATE SODIUM 100 MG CAPSULE PO SCH (09:01)
[2020-05-15] MEDS: POLYETHYLENE GLYCOL POWDER 17 GM PACK PO SCH (09:02)
[2020-05-15] MEDS: carvediloL 12.5 MG TABLET PO SCH ×2 (09:02→20:44)
[2020-05-15] MEDS: cloNIDine 0.1 MG TABLET PO SCH ×3 (09:02→20:43)
[2020-05-15] MEDS: LOSARTAN 50 MG TABLET PO SCH (09:02)
[2020-05-15] MEDS: amLODIPine 5 MG TABLET PO SCH (09:02)
[2020-05-15] MEDS: CHLORHEXIDINE 0.12% ORAL RINSE 60 ML BOTTLE SWISH/SPIT SCH ×2 (11:17→21:33)
[2020-05-15] MEDS: ZALEPLON 5 MG CAPSULE PO PRN (20:49)
[2020-05-16] MEDS: oxyCODONE/ACETAMINOPHEN 5-325 MG TABLET PO PRN (04:00)
[2020-05-16 06:08] LABS: Basophils % 0.1 % (0.0-0.8); Eosinophils # 0.2 10*3/uL (0.0-0.87); Eosinophils % 3.1 % (0.00-10.9); Hemoglobin 9.2 GM/DL (14.0-18.0); Immature Granulocytes % 0.9 %; Immature Granulocytes Absolute 0.07 #; Lymphocytes # 1.8 10*3/uL (1.4-4.0); Lymphocytes % 23.3 % (21.2-54.2); Mean Corpuscular HGB Conc 32.9 GM/DL (32-36); Mean Corpuscular Volume 90.9 FL (87-102); Mean Platelet Volume 10.7 FL (9.6-12.0); Monocytes % 8.9 % (1.7-12.7); Neutrophils % 63.7 % (38.7-73.9); Platelet Count 131 T/CUMM (130-400); Red Blood Count 3.08 MC/CUMM (3.8-5.5); Red Cell Distribution Width 14.5 % (9.3-17.3); White Blood Count 7.5 T/CUMM (4-12)
[2020-05-16 06:21] LABS: Calcium 8.6 MG/DL (8.5-10.1); Osmolality,Calculated 265.5 MOS/KG (273-304); Potassium 3.7 MMOL/L (3.5-5.1)
[2020-05-16 06:30] LABS: Hypochromasia 1+; Microcytosis 1+; Platelet Estimate Adequate
[2020-05-16] MEDS: ASPIRIN EC 81 MG TABLET PO SCH (08:48)
[2020-05-16] MEDS: ASCORBIC ACID 500 MG TABLET PO SCH (08:48)
[2020-05-16] MEDS: FUROSEMIDE 40 MG TABLET PO SCH (08:48)
[2020-05-16] MEDS: LOSARTAN 50 MG TABLET PO SCH (08:49)
[2020-05-16] MEDS: CHLORHEXIDINE 0.12% ORAL RINSE 60 ML BOTTLE SWISH/SPIT SCH (08:49)
[2020-05-16] MEDS: FERROUS SULFATE 325 MG TABLET PO SCH (08:49)
[2020-05-16] MEDS: POLYETHYLENE GLYCOL POWDER 17 GM PACK PO SCH (08:49)
[2020-05-16] MEDS: PANTOPRAZOLE 40 MG TABLET PO SCH (08:49)
[2020-05-16] MEDS: carvediloL 12.5 MG TABLET PO SCH (08:49)
[2020-05-16] MEDS: DOCUSATE SODIUM 100 MG CAPSULE PO SCH (08:49)
[2020-05-16] MEDS: amLODIPine 5 MG TABLET PO SCH (08:49)
[2020-05-16] MEDS ORDERED: cloNIDine 0.1 MG TABLET PO SCH (09:00)
[2020-05-16 12:14] VITALS: BP 120/63
== END 2020-05-16 13:47 | disposition home health service (06) | DRG 216 ==
LOC: N.CL 05:46 → N.TELES 05:46 → N.CL 06:10 → N.TELES 11:21 → N.CVR 05-11 13:16 → N.ICU 05-12 11:40 → N.TELES 05-13 12:16
PROVIDERS: ADMIT Internal Medicine Cardiovascular Disease; ATTEND Internal Medicine Cardiovascular Disease

== ENCOUNTER 2020-05-31 02:25 | Inpatient (IN) ==
[2020-05-31 02:39] LABS: Basophils # 0.1 10*3/uL (0.0-0.2); Basophils % 0.5 % (0.0-0.8); Eosinophils # 0.4 10*3/uL (0.0-0.87); Eosinophils % 3.6 % (0.00-10.9); Hematocrit 26.8 VOL% (42.0-52.0); Hemoglobin 8.4 GM/DL (14.0-18.0); Immature Granulocytes % 0.5 %; Immature Granulocytes Absolute 0.05 #; Lymphocytes # 2.2 10*3/uL (1.4-4.0); Lymphocytes % 21.3 % (21.2-54.2); Mean Corpuscular HGB Conc 31.3 GM/DL (32-36); Mean Corpuscular Volume 93.7 FL (87-102); Monocytes % 4.9 % (1.7-12.7); Neutrophils % 69.2 % (38.7-73.9); Platelet Count 340 T/CUMM (130-400); Red Blood Count 2.86 MC/CUMM (3.8-5.5); Red Cell Distribution Width 15.8 % (9.3-17.3); White Blood Count 10.4 T/CUMM (4-12)
[2020-05-31 02:52] LABS: INR 1.1; PT Patient Result 11.4 SECS (9.8-11.9); Partial Thromboplastin Time 20.6 SECS (23.9-33.8)
[2020-05-31] MEDS ORDERED: CALCIUM CHLORIDE 1,000 MG/10 ML SYRINGE IV ONE (02:59)
[2020-05-31] MEDS ORDERED: ONDANSETRON 4 MG/2 ML VIAL ONE (03:02)
[2020-05-31] MEDS ORDERED: ONDANSETRON 4 MG/2 ML VIAL IV STA (03:02)
[2020-05-31] MEDS ORDERED: VANCOMYCIN 1,000 MG VIAL ONE (03:04)
[2020-05-31 03:06] LABS: Albumin 3.1 G/DL (3.4-5.0); Bilirubin,Total 0.6 MG/DL (0.2-1.0); Calcium 8.8 MG/DL (8.5-10.1); Osmolality,Calculated 278.5 MOS/KG (273-304); Potassium 3.7 MMOL/L (3.5-5.1); Total Protein 7.1 G/DL (6.4-8.2)
[2020-05-31 03:07] LABS: Troponin I 0.015 NG/ML (0.00-0.045)
[2020-05-31] MEDS ORDERED: VANCOMYCIN (NICU) 1,000 MG in SYRINGE 1 EACH IV STA (03:10)
[2020-05-31] MEDS ORDERED: VANCOMYCIN IV STA (03:15)
[2020-05-31] MEDS ORDERED: ROCURONIUM 50 MG/5 ML VIAL IV ONE (03:16)
[2020-05-31] MEDS ORDERED: fentaNYL 100 MCG/2 ML VIAL ONE ×2 (03:16→03:46)
[2020-05-31] MEDS ORDERED: SEVOFLURANE 1 UNIT/15 MINUTE INH ONE ×3 (03:16→03:44)
[2020-05-31] MEDS ORDERED: propofoL 200 MG/20 ML VIAL IV ONE (03:16)
[2020-05-31] MEDS ORDERED: LIDOCAINE 2% 5 ML VIAL ONE (03:16)
[2020-05-31] MEDS ORDERED: MIDAZOLAM 2 MG/2 ML VIAL ONE (03:16)
[2020-05-31] MEDS ORDERED: SUCCINYLCHOLINE 200 MG/10 ML VIAL ONE (03:16)
[2020-05-31] MEDS ORDERED: SODIUM CHLORIDE 0.9% 1,000 ML IV ONE (03:44)
[2020-05-31] MEDS ORDERED: PHENYLEPHRINE 1 MG/10 ML SYRINGE IV ONE (03:58)
[2020-05-31] MEDS ORDERED: VANCOMYCIN INJ 1,000 MG in SODIUM CHLORIDE 0.9% 500 ML IV STA (03:58)
[2020-05-31] MEDS ORDERED: CALCIUM CHLORIDE 1,000 MG/10 ML SYRINGE IV STA (04:00)
[2020-05-31] MEDS ORDERED: ONDANSETRON 4 MG/2 ML VIAL IV PRN (04:05)
[2020-05-31] MEDS ORDERED: HYDROmorphone 2 MG/1 ML VIAL IV PRN (04:05)
[2020-05-31] MEDS ORDERED: oxyCODONE/ACETAMINOPHEN 5-325 MG TABLET PO PRN (04:05)
[2020-05-31] MEDS ORDERED: ALBUTEROL 2.5 MG/3 ML NEB RESP TX PRN (04:21)
[2020-05-31] MEDS ORDERED: LACTATED RINGERS 1,000 ML IV SCH (04:30)
[2020-05-31 05:45] LABS: Basophils % 0.3 % (0.0-0.8); Eosinophils # 0.1 10*3/uL (0.0-0.87); Eosinophils % 0.9 % (0.00-10.9); Hematocrit 27.2 VOL% (42.0-52.0); Hemoglobin 9.2 GM/DL (14.0-18.0); Immature Granulocytes Absolute 0.09 #; Lymphocytes % 11.6 % (21.2-54.2); Mean Corpuscular HGB Conc 33.8 GM/DL (32-36); Mean Corpuscular Volume 93.8 FL (87-102); Mean Platelet Volume 9.2 FL (9.6-12.0); Monocytes % 5.3 % (1.7-12.7); NRBC # 0.02 10*3/uL; Neutrophils % 80.9 % (38.7-73.9); Platelet Count 233 T/CUMM (130-400); Red Cell Distribution Width 17.3 % (9.3-17.3); White Blood Count 8.8 T/CUMM (4-12)
[2020-05-31 06:04] LABS: Calcium 8.4 MG/DL (8.5-10.1); Osmolality,Calculated 280.4 MOS/KG (273-304); Potassium 4.3 MMOL/L (3.5-5.1)
[2020-05-31] MEDS: ASPIRIN EC 81 MG TABLET PO SCH (08:12)
[2020-05-31] MEDS: FUROSEMIDE 20 MG TABLET PO SCH (08:18)
[2020-05-31] MEDS: carvediloL 12.5 MG TABLET PO SCH ×2 (08:26→16:18)
[2020-05-31] MEDS: cloNIDine 0.1 MG TABLET PO SCH ×2 (10:07→20:14)
[2020-05-31] MEDS: amLODIPine 5 MG TABLET PO SCH (10:07)
[2020-05-31] MEDS: LOSARTAN 50 MG TABLET PO SCH (10:07)
[2020-05-31] MEDS: oxyCODONE/ACETAMINOPHEN 5-325 MG TABLET PO PRN ×2 (10:50→23:30)
[2020-06-01 06:46] LABS: Basophils % 0.5 % (0.0-0.8); Eosinophils # 0.3 10*3/uL (0.0-0.87); Eosinophils % 4.6 % (0.00-10.9); Hematocrit 24.5 VOL% (42.0-52.0); Immature Granulocytes % 0.4 %; Immature Granulocytes Absolute 0.02 #; Lymphocytes # 1.5 10*3/uL (1.4-4.0); Lymphocytes % 26.6 % (21.2-54.2); Mean Corpuscular HGB Conc 32.7 GM/DL (32-36); Mean Corpuscular Volume 92.8 FL (87-102); Mean Platelet Volume 9.6 FL (9.6-12.0); Monocytes % 6.1 % (1.7-12.7); Neutrophils % 61.8 % (38.7-73.9); Platelet Count 189 T/CUMM (130-400); Red Blood Count 2.64 MC/CUMM (3.8-5.5); Red Cell Distribution Width 17.6 % (9.3-17.3); White Blood Count 5.6 T/CUMM (4-12)
[2020-06-01 07:05] LABS: Calcium 8.3 MG/DL (8.5-10.1); Osmolality,Calculated 280.3 MOS/KG (273-304)
[2020-06-01] MEDS: carvediloL 12.5 MG TABLET PO SCH ×2 (08:53→16:20)
[2020-06-01] MEDS: ASPIRIN EC 81 MG TABLET PO SCH (08:53)
[2020-06-01] MEDS: FUROSEMIDE 20 MG TABLET PO SCH (08:53)
[2020-06-01] MEDS: cloNIDine 0.1 MG TABLET PO SCH ×2 (08:53→20:34)
[2020-06-01] MEDS: amLODIPine 5 MG TABLET PO SCH (08:54)
[2020-06-01] MEDS: LOSARTAN 50 MG TABLET PO SCH (08:54)
[2020-06-01] MEDS: MULTIVITAMIN (INTRINSIC) CAPSULE PO SCH (20:34)
[2020-06-01] MEDS: oxyCODONE/ACETAMINOPHEN 5-325 MG TABLET PO PRN (22:58)
[2020-06-02] MEDS: MULTIVITAMIN (INTRINSIC) CAPSULE PO SCH (09:26)
[2020-06-02] MEDS: ASPIRIN EC 81 MG TABLET PO SCH (09:27)
[2020-06-02] MEDS: FUROSEMIDE 20 MG TABLET PO SCH (09:27)
[2020-06-02] MEDS: LOSARTAN 50 MG TABLET PO SCH (09:27)
[2020-06-02] MEDS: carvediloL 12.5 MG TABLET PO SCH (09:27)
[2020-06-02] MEDS: cloNIDine 0.1 MG TABLET PO SCH (09:28)
[2020-06-02] MEDS: amLODIPine 5 MG TABLET PO SCH (09:28)
[2020-06-02 11:31] VITALS: BP 129/75
[2020-06-02 12:18] LABS: Hematocrit 29.2 VOL% (42.0-52.0); Hemoglobin 9.1 GM/DL (14.0-18.0)
== END 2020-06-02 13:00 | disposition home or self-care (01) | DRG 253 ==
LOC: EDBD → EDUNIT# → N.ED 02:25 → N.CC 03:18 → N.EDINP 04:05 → N.CC 05:18 → N.5E 14:28
PROVIDERS: ADMIT Surgery; ATTEND Surgery